=== PATIENT | male | born 1985 | race Caucasian/White ===

== ENCOUNTER 2019-07-07 21:37 | Emergency (ER) | payer BC, OTHER ==
[2019-07-07 21:58] VITALS: BP 136/82; PULSE 98; TEMP 98.9; BMI 34.0
--- NOTE | 2019-07-07 22:42 | PDOC ---
History of Present Illness - General Chief Complaint: Urinary Problem Stated Complaint: UTI Time Seen by Provider: 07/07/19 22:03 - History of Present Illness Initial Comments: 07/07/19 22:38 CHIEF COMPLAINT: urinary problem HISTORY OF PRESENT ILLNESS: 33 yo M with difficulty urinating and urinary urgency x 1 week. Patient reports that he was seen at [facility] 2 months ago for similar symptoms and given Levaquin for a UTI. Denies hx of STDs and states he has only recently had one female partner. Patient states he is not worried about STDs. Patient garcia snot have a PCP. No recent travel or sick contacts. PAST MEDICAL HISTORY: Denies past medical history FAMILY HISTORY: Denies SOCIAL HISTORY: Denies tobacco, alcohol, illicit drug use. SURGICAL HISTORY: Denies ALLERGIES: No known drug allergies REVIEW OF SYSTEMS General/Constitutional: Denies fever or chills. Denies weakness, weight change. HEENT: Denies change in vision. Denies ear pain or discharge. Denies sore throat. Cardiovascular: Denies chest pain or shortness of breath. Respiratory: Denies cough, wheezing, or hemoptysis. Gastrointestinal: Denies nausea, vomiting, diarrhea or constipation. Denies rectal bleeding. Genitourinary: Urinary hesitancy, with mild dysuria, frequency, and urgency. Denies penile discharge. Musculoskeletal: Denies joint or muscle swelling or pain. Denies neck or back pain. Skin and breasts: Denies rash or easy bruising. Neurologic: Denies headache, vertigo, loss of consciousness, or loss of sensation. Psychiatric: Denies depression or anxiety. PHYSICAL EXAM General Appearance: Well-appearing, appropriately dressed. No apparent distress , no intoxication. HEENT: EOMI, PERRLA, normal ENT inspection, normal voice, TMs normal, pharynx normal. No conjunctival pallor. No photophobia, scleral icterus. Neck: Supple. Trachea midline. No tenderness, rigidity, carotid bruit, stridor , lymphadenopathy, or thyromegaly. Respiratory/Chest: Lungs CTAB. No shortness of breath, chest tenderness, respiratory distress, accessory muscle use. No crackles, rales, rhonchi, stridor , wheezing, dullness Cardiovascular: RRR. S1, S2. No JVD, murmur, bradycardia, tachycardia. Vascular Pulses: Dorsalis-Pedis (R): 2+, Dorsalis-Pedis (L): 2+ Gastrointestinal/Abdominal: Normal bowel sounds. Abdomen soft, non-distended. No tenderness or rebound tenderness. No organomegaly, pulsatile mass, guarding , hernia, hepatomegaly, splenomegaly. Lymphatic: No adenopathy, tenderness. Musculoskeletal/Extremities: Normal inspection. FROM of all extremities, normal capillary refill. Pelvis Stable. No CVA tenderness. No tenderness to extremities, pedal edema, swelling, erythema or deformity. Integumentary: Appropriate color, dry, warm. No cyanosis, erythema, jaundice or rash Neurologic: fine wire drawer II-XII intact. Fully oriented, alert. Appropriate mood/affect. Motor strength 5/5. No appreciable EOM palsy, facial droop or sensory deficit. 07/08/19 01:39 Past History - Past Medical History Allergies/Adverse Reactions: Allergies Allergy/AdvReac Type Severity Reaction Status Date / Time No Known Allergies Allergy Verified 07/07/19 21:58 Home Medications: Ambulatory Orders Ibuprofen 600 mg PO TID #60 capsule 07/08/19 Sulfamethoxazole/Trimethoprim [Bactrim Ds Tablet] 1 each PO BID #14 tablet 07/08 COPD: No - Psycho Social/Smoking Cessation Hx Smoking History: Current every day smoker Number of Cigarettes Smoked Daily: 20 Information on smoking cessation initiated: No Hx Alcohol Use: No Drug/Substance Use Hx: No *Physical Exam - Vital Signs Last Vital Signs Temp Pulse Resp BP Pulse Ox 98.9 F 98 H 19 136/82 99 07/07/19 21:56 07/07/19 21:56 07/07/19 21:56 07/07/19 21:56 07/07/19 21:56 Medical Decision Making - Medical Decision Making 07/07/19 22:43 33 yo M with difficulty urinating and urinary urgency x 1 week. -ua, uc, ct/gc 07/08/19 01:29 Bedside ultrasound performed by Cholo Merino with findings of thickened bladder suggestive of bladder infection. Will treat with Bactrim, f/u with urology. 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 NSAIDS, refer to ortho. Advised patient to take medication as prescribed and follow up with urology and ortho. Advised patient of signs and symptoms for return to ED. Patient verbalized understanding and agrees to plan. Discharge - Discharge Information Problems reviewed: Yes Clinical Impression/Diagnosis: Bladder infection, Leg pain, bilateral Condition: Stable Disposition: HOME - Admission No - Additional Discharge Information Prescriptions: Ibuprofen 600 mg PO TID #60 capsule Sulfamethoxazole/Trimethoprim [Bactrim Ds Tablet] 1 each PO BID #14 tablet - Follow up/Referral Referrals: Mansoor Hernandez MD [Staff Physician] - Migel Leija DO [Staff Physician] - Parmjit Mo MD [Staff Physician] - - Patient Discharge Instructions Patient Printed Discharge Instructions: Bladder Infections Happen in Men Too Additional Instructions: Please take medications as prescribed. Complete the entire course of antibiotics, even if your symptoms improve. Follow up with urology within the next 1-2 weeks for further evaluation of your recurrent bladder infections. You may also follow up with orthopedics for further evaluation of your leg pain. If you develop any pain to your back, fever, chills, nausea, vomiting, or diarrhea, or any new or worsening symptoms, please return to the ER . - Post Discharge Activity Work/Back to School Note: Back to Work
[2019-07-08 00:06] LABS: PH,URINE 5.5 (5.0-8.0); URINE APPEARANCE CLEAR; URINE BILIRUBIN NEGATIVE (NEGATIVE); URINE COLOR YELLOW; URINE GLUCOSE (UA) NEGATIVE (NEGATIVE); URINE KETONE NEGATIVE (NEGATIVE); URINE LEUK ESTERASE NEGATIVE (NEGATIVE); URINE NITRITE NEGATIVE (NEGATIVE); URINE PROTEIN NEGATIVE (NEGATIVE); URINE UROBILINOGEN 0.2 mg/dL (0.2-1.0)
--- NOTE | 2019-07-08 01:42 | PDOC ---
*Physical Exam - Vital Signs Last Vital Signs Temp Pulse Resp BP Pulse Ox 98.9 F 98 H 19 136/82 99 07/07/19 21:56 07/07/19 21:56 07/07/19 21:56 07/07/19 21:56 07/07/19 21:56 - Physical Exam 07/08/19 01:39 awake alert lungs clear bilat heart rrr no mrg abd soft nt nd no cva tenderness. skin warm and dry. noted scratch rodriguez on abd. skin otherwise warm and dry. ED Treatment Course - ADDITIONAL ORDERS Additional order review: Laboratory Results 07/07/19 23:42 Urine Color Yellow Urine Appearance Clear Urine pH 5.5 Ur Specific [place] 1.024 Urine Protein Negative Urine Glucose (UA) Negative Urine Ketones Negative Urine Blood Negative Urine Nitrite Negative Urine Bilirubin Negative Urine Urobilinogen 0.2 Ur Leukocyte Esterase Negative Medical Decision Making - Medical Decision Making 07/08/19 01:40 33 yo male h/o recent uti, here with urinary hesitancy, dysuria. no f/c no flank pain. no testicular pain. states was treated with keflex for uti recently. no mod facotrs. was checked for std recently and negativ.e does not have a pcp. pt with normal physical exam. focused ed renal us performed no hydronephrosis. daljit rnoted to hve thickened appearance on ulrsaound. recommend urology fu. will treat with clinical sxs of uti despite ua negative. dc home. given uro flllowup. pt with c/o leg pain. states msk strain. will given ortho fu also. and [facility] fu. pt seen and examined in conjunction with Melanie Correia, agree with assement and plan. Discharge - Discharge Information Problems reviewed: Yes Clinical Impression/Diagnosis: Bladder infection, Leg pain, bilateral Condition: Stable Disposition: HOME - Admission No - Additional Discharge Information Prescriptions: Ibuprofen 600 mg PO TID #60 capsule Sulfamethoxazole/Trimethoprim [Bactrim Ds Tablet] 1 each PO BID #14 tablet - Follow up/Referral Referrals: Parmjit Mo MD [Staff Physician] - Mansoor Hernandez MD [Staff Physician] - Migel Leija DO [Staff Physician] - - Patient Discharge Instructions Patient Printed Discharge Instructions: Bladder Infections Happen in Men Too Additional Instructions: Please take medications as prescribed. Complete the entire course of antibiotics, even if your symptoms improve. Follow up with urology within the next 1-2 weeks for further evaluation of your recurrent bladder infections. You may also follow up with orthopedics for further evaluation of your leg pain. If you develop any pain to your back, fever, chills, nausea, vomiting, or diarrhea, or any new or worsening symptoms, please return to the ER . - Post Discharge Activity
== END 2019-07-08 01:51 | disposition home or self-care (01) ==
LOC: JER 21:37
PROC: BT40ZZZ Ultrasonography of Bladder (ICD-10-PCS; principal; 2019-07-07)
DX: N30.80 Other cystitis without hematuria (principal); M79.605 Pain in left leg; M79.604 Pain in right leg; B96.89 Other specified bacterial agents as the cause of diseases classified elsewhere
CPT/HCPCS: 36415; 76775; 81003; 87086; 87186; 87491; 87591; 99282-25

== ENCOUNTER 2021-07-12 19:24 | Inpatient (IN) | payer OTHER ==
[2021-07-12] MEDS ORDERED: KETOROLAC TROMETHAMINE 15 MG/ML VIAL IVPUSH ONE (20:10)
[2021-07-12] MEDS ORDERED: SODIUM CHLORIDE 0.9% 500 ML INFUS.BAG IV ONE (20:10)
[2021-07-12] MEDS ORDERED: KETOROLAC TROMETHAMINE 30 MG/1 ML VIAL ONE (20:26)
[2021-07-12] MEDS ORDERED: SODIUM CHLORIDE 3,674 ML IV ONE (20:31)
[2021-07-12 20:33] LABS: HEMATOCRIT 41.2 % (35.4-49); HEMOGLOBIN 13.9 GM/dL (11.7-16.9); MCH 31.2 pg (25.7-33.7); MCHC 33.7 g/dl (32.0-35.9); MEAN CELL VOLUME 92.5 fl (80-96); PLATELET COUNT 222 10^3/uL (134-434); RBC 4.46 M/mm3 (4.00-5.60); RDW 13.4 % (11.9-15.9)
[2021-07-12 20:42] LABS: WHITE BLOOD COUNT 30.4 K/mm3 (4.0-10.0)
[2021-07-12 20:56] LABS: ALBUMIN 3.4 g/dl (3.4-5.0); BLOOD UREA NITROGEN 16.2 mg/dL (7-18); CALCIUM 8.3 mg/dL (8.5-10.1)
[2021-07-12] MEDS ORDERED: CEFTRIAXONE 1 GM/50 ML BAG ONE (20:56)
[2021-07-12 20:59] LABS: CREATININE 1.7 mg/dL (0.55-1.3)
[2021-07-12 21:01] LABS: BILIRUBIN,TOTAL 1.4 mg/dL (0.2-1); TOT PROT 6.5 g/dl (6.4-8.2)
[2021-07-12 21:23] LABS: INR 1.22 (0.83-1.09); PROTHROMBIN TIME (PATIENT) 14.3 SEC (9.7-13.0)
[2021-07-12 21:26] LABS: ACTIVATED PTT 30.6 SECONDS (25.2-36.5)
[2021-07-12 21:38] LABS: EPI CELLS 18 /uL (0-25.1); HYALINE CASTS 58 /uL (0-3.1); URINE APPEARANCE CLOUDY; URINE BACTERIA 3095 /uL (0-1359); URINE BILIRUBIN 2+ (NEGATIVE); URINE COLOR ORANGE; URINE GLUCOSE (UA) NEGATIVE (NEGATIVE); URINE KETONE TRACE (NEGATIVE); URINE LEUK ESTERASE 2+ (NEGATIVE); URINE NITRITE POSITIVE (NEGATIVE); URINE PROTEIN 2+ (NEGATIVE); URINE RBC 12 /uL (0-23.9); URINE WBC 293 /uL (0-25.8)
[2021-07-12 21:44] LABS: LACTIC ACID 4.6 mmol/L (0.4-2.0)
[2021-07-12 22:00] LABS: ANISOCYTOSIS 0; MACROCYTOSIS 0; PLATELET ESTIMATE NORMAL
[2021-07-13 02:18] LABS: LACTIC ACID 3.4 mmol/L (0.4-2.0)
[2021-07-13] MEDS: SODIUM CHLORIDE 1,000 ML IV SCH (02:33)
[2021-07-13] MEDS ORDERED: SODIUM CHLORIDE 0.9% 500 ML INFUS.BAG IV ONE (03:03)
[2021-07-13] MEDS ORDERED: HEPARIN NA (PORCINE) 5,000 UNITS/ML 1ML VIAL ONE (06:45)
[2021-07-13] MEDS: HEPARIN NA (PORCINE) 5,000 UNITS/ML 1ML VIAL SQ SCH ×3 (06:50→21:15)
[2021-07-13 07:57] LABS: CALCIUM 7.6 mg/dL (8.5-10.1)
[2021-07-13 07:58] LABS: BLOOD UREA NITROGEN 14.4 mg/dL (7-18); MAGNESIUM 1.8 mg/dL (1.8-2.4)
[2021-07-13 08:03] LABS: BILIRUBIN,TOTAL 1.2 mg/dL (0.2-1); TOT PROT 6.1 g/dl (6.4-8.2)
[2021-07-13 08:07] LABS: HEMATOCRIT 37.5 % (35.4-49); HEMOGLOBIN 12.5 GM/dL (11.7-16.9); MCH 31.4 pg (25.7-33.7); MCHC 33.2 g/dl (32.0-35.9); MEAN CELL VOLUME 94.5 fl (80-96); MEAN PLT VOLUME 7.7 fl (7.5-11.1); PLATELET COUNT 197 10^3/uL (134-434); RBC 3.97 M/mm3 (4.00-5.60); RDW 13.4 % (11.9-15.9); WHITE BLOOD COUNT 31.6 K/mm3 (4.0-10.0)
[2021-07-13 09:01] LABS: EPI CELLS 9 /uL (0-25.1); HYALINE CASTS 2 /uL (0-3.1); PH,URINE 5.5 (5.0-8.0); URINE APPEARANCE CLEAR; URINE BACTERIA 13 /uL (0-1359); URINE BILIRUBIN 1+ (NEGATIVE); URINE COLOR DK YELLOW; URINE GLUCOSE (UA) NEGATIVE (NEGATIVE); URINE KETONE 2+ (NEGATIVE); URINE LEUK ESTERASE 1+ (NEGATIVE); URINE NITRITE NEGATIVE (NEGATIVE); URINE PROTEIN 1+ (NEGATIVE); URINE RBC 13 /uL (0-23.9); URINE WBC 161 /uL (0-25.8)
[2021-07-13] MEDS: POLYETHYLENE GLYCOL (HEALTHYLAX) 3350 17 GM PACKET PO SCH (11:42)
[2021-07-13] MEDS ORDERED: cefTRIAXone SODIUM 1 GM VIAL ONE (11:43)
[2021-07-13] MEDS ORDERED: DEXTROSE 5%-WATER - 50 ML IVPB ONE (11:43)
[2021-07-13] MEDS: NICOTINE 21 MG/24 HOURS TOPICAL PATCH TD SCH (11:47)
[2021-07-13] MEDS: CEFTRIAXONE 1 GM in DEXTROSE 5%-WATER - 50 ML IVPB SCH (12:54)
[2021-07-13 13:15] VITALS: BMI 44.4
[2021-07-13] MEDS: ACETAMINOPHEN 325 MG TABLET (FP) PO PRN (20:23)
[2021-07-14] MEDS: SODIUM CHLORIDE 1,000 ML IV SCH ×2 (02:24→12:15)
[2021-07-14] MEDS: HEPARIN NA (PORCINE) 5,000 UNITS/ML 1ML VIAL SQ SCH ×3 (05:25→22:14)
[2021-07-14 08:43] LABS: HEMATOCRIT 40.3 % (35.4-49); HEMOGLOBIN 13.3 GM/dL (11.7-16.9); MCH 31.3 pg (25.7-33.7); MCHC 33.1 g/dl (32.0-35.9); MEAN CELL VOLUME 94.5 fl (80-96); MEAN PLT VOLUME 8.7 fl (7.5-11.1); PLATELET COUNT 204 10^3/uL (134-434); RBC 4.26 M/mm3 (4.00-5.60); RDW 13.2 % (11.9-15.9); WHITE BLOOD COUNT 18.6 K/mm3 (4.0-10.0)
[2021-07-14 09:00] LABS: BLOOD UREA NITROGEN 8.3 mg/dL (7-18); CALCIUM 8.4 mg/dL (8.5-10.1)
[2021-07-14 09:01] LABS: ALBUMIN 3.1 g/dl (3.4-5.0)
[2021-07-14 09:03] LABS: PHOSPHOROUS 2.7 mg/dL (2.5-4.9)
[2021-07-14 09:04] LABS: CREATININE 0.8 mg/dL (0.55-1.3); MAGNESIUM 2.2 mg/dL (1.8-2.4); TOT PROT 6.4 g/dl (6.4-8.2)
[2021-07-14 09:05] LABS: BILIRUBIN,TOTAL 0.7 mg/dL (0.2-1)
[2021-07-14] MEDS ORDERED: DEXTROSE 5%-WATER - 50 ML IVPB ONE (10:13)
[2021-07-14] MEDS ORDERED: PT OWN MED DRAWER 7, Y5N ONE (10:13)
[2021-07-14] MEDS ORDERED: cefTRIAXone SODIUM 1 GM VIAL ONE (10:13)
[2021-07-14] MEDS: POLYETHYLENE GLYCOL (HEALTHYLAX) 3350 17 GM PACKET PO SCH (10:17)
[2021-07-14] MEDS: CEFTRIAXONE 1 GM in DEXTROSE 5%-WATER - 50 ML IVPB SCH (10:17)
[2021-07-14] MEDS: NICOTINE 21 MG/24 HOURS TOPICAL PATCH TD SCH (10:17)
[2021-07-14] MEDS: ACETAMINOPHEN 325 MG TABLET (FP) PO PRN (10:36)
[2021-07-15] MEDS: SODIUM CHLORIDE 1,000 ML IV SCH (01:30)
[2021-07-15] MEDS: HEPARIN NA (PORCINE) 5,000 UNITS/ML 1ML VIAL SQ SCH ×2 (05:46→14:07)
[2021-07-15 09:22] LABS: BASO % 0.7 % (0-2.0); EOS % 4.9 % (0-4.5); HEMATOCRIT 40.4 % (35.4-49); HEMOGLOBIN 13.5 GM/dL (11.7-16.9); LYMPH % 21.8 % (8-40); MCH 31.5 pg (25.7-33.7); MCHC 33.5 g/dl (32.0-35.9); MEAN PLT VOLUME 8.2 fl (7.5-11.1); MONO % 7.3 % (3.8-10.2); NEUT % 65.3 % (42.8-82.8); PLATELET COUNT 242 10^3/uL (134-434); WHITE BLOOD COUNT 10.4 K/mm3 (4.0-10.0)
[2021-07-15] MEDS ORDERED: cefTRIAXone SODIUM 1 GM VIAL ONE (09:52)
[2021-07-15] MEDS ORDERED: DEXTROSE 5%-WATER - 50 ML IVPB ONE (09:52)
[2021-07-15 09:53] LABS: BLOOD UREA NITROGEN 7.9 mg/dL (7-18); CALCIUM 8.5 mg/dL (8.5-10.1)
[2021-07-15] MEDS: CEFTRIAXONE 1 GM in DEXTROSE 5%-WATER - 50 ML IVPB SCH (09:56)
[2021-07-15] MEDS: NICOTINE 21 MG/24 HOURS TOPICAL PATCH TD SCH (09:56)
[2021-07-15 09:57] LABS: CREATININE 0.8 mg/dL (0.55-1.3)
[2021-07-15] MEDS: POLYETHYLENE GLYCOL (HEALTHYLAX) 3350 17 GM PACKET PO SCH (10:25)
[2021-07-15 14:56] VITALS: BP 137/87; PULSE 98; TEMP 98.2
== END 2021-07-15 17:47 | disposition home or self-care (01) | DRG 720 ==
LOC: JER 19:24 → JERBED 21:48 → J8W 07-13 10:20
PROVIDERS: ADMIT Hospitalist
DX: A41.89 Other specified sepsis (principal); R00.0 Tachycardia, unspecified; M79.10 Myalgia, unspecified site; D72.829 Elevated white blood cell count, unspecified; R33.9 Retention of urine, unspecified; E87.2 Acidosis; M54.10 Radiculopathy, site unspecified; N12 Tubulo-interstitial nephritis, not specified as acute or chronic; N39.0 Urinary tract infection, site not specified; M50.20 Other cervical disc displacement, unspecified cervical region; M51.24 Other intervertebral disc displacement, thoracic region; M51.26 Other intervertebral disc displacement, lumbar region; R65.20 Severe sepsis without septic shock; E66.01 Morbid (severe) obesity due to excess calories; Z68.41 Body mass index [BMI] 40.0-44.9, adult; M54.30 Sciatica, unspecified side
CPT/HCPCS: 36415; 74176-TC; 76775-TC; 76856-TC; 80048; 80053; 81003; 83036; 83605; 83735; 84100; 85025; 85027; 85610; 85730; 87040; 87086; 87186; 87491; 87591; 93005; 93010; 99285-25; C9803; U0003; U0005

== ENCOUNTER 2022-04-07 23:10 | Emergency (ER) | payer OTHER ==
[2022-04-07 23:28] VITALS: BP 119/67; PULSE 117; RESP 18; TEMP 99.3; BMI 41.0
[2022-04-08] MEDS ORDERED: LACTATED RINGERS SOLUTION 1000 ML INFUS.BAG IV ONE (00:41)
[2022-04-08 01:31] LABS: EPI CELLS 19 /uL (0-25.1); HYALINE CASTS 2 /uL (0-3.1); PH,URINE 5.5 (5.0-8.0); URINE APPEARANCE CLEAR; URINE BACTERIA 4494 /uL (0-1359); URINE BILIRUBIN NEGATIVE (NEGATIVE); URINE COLOR YELLOW; URINE GLUCOSE (UA) NEGATIVE (NEGATIVE); URINE KETONE TRACE (NEGATIVE); URINE LEUK ESTERASE TRACE (NEGATIVE); URINE NITRITE NEGATIVE (NEGATIVE); URINE PROTEIN NEGATIVE (NEGATIVE); URINE RBC 5 /uL (0-23.9); URINE UROBILINOGEN 0.2 mg/dL (0.2-1.0); URINE WBC 58 /uL (0-25.8)
[2022-04-08 01:46] LABS: BASO % 0.4 % (0-2.0); EOS % 3.8 % (0-4.5); HEMATOCRIT 42.5 % (35.4-49); HEMOGLOBIN 14.3 GM/dL (11.7-16.9); LYMPH % 7.7 % (8-40); MCH 31.4 pg (25.7-33.7); MCHC 33.7 g/dl (32.0-35.9); MONO % 7.1 % (3.8-10.2); PLATELET COUNT 305 10^3/uL (134-434); RBC 4.57 M/mm3 (4.00-5.60); RDW 13.1 % (11.9-15.9); WHITE BLOOD COUNT 9.3 K/mm3 (4.0-10.0)
[2022-04-08] MEDS ORDERED: CEFTRIAXONE 1,500 MG in DEXTROSE 5%-WATER - 50 ML IVPB ONE (01:46)
[2022-04-08 02:07] LABS: CALCIUM 8.7 mg/dL (8.5-10.1); MAGNESIUM 2.1 mg/dL (1.8-2.4)
[2022-04-08 02:08] LABS: BLOOD UREA NITROGEN 14.3 mg/dL (7-18)
[2022-04-08 02:10] LABS: CREATININE 0.9 mg/dL (0.55-1.3)
[2022-04-08 02:12] LABS: BILIRUBIN,TOTAL 0.4 mg/dL (0.2-1); TOT PROT 7.1 g/dl (6.4-8.2)
[2022-04-08] MEDS ORDERED: CEFTRIAXONE 2 GM/100 ML BAG IVPB ONE (02:27)
[2022-04-08] MEDS ORDERED: CEFTRIAXONE 2,000 MG in DEXTROSE 5%-WATER - 50 ML IVPB ONE (02:35)
[2022-04-08 02:54] LABS: SYPHILIS W/ RPR CONF NON-REACTIVE (NONREACTIVE)
[2022-04-08 03:22] LABS: HIV INTERPRETATION NEGATIVE (NEGATIVE)
== END 2022-04-08 04:16 | disposition home or self-care (01) ==
LOC: JER 23:10
DX: U07.1 COVID-19 (principal)
CPT/HCPCS: 36415; 71046-TC-FY; 76870-TC; 80053; 81003; 83690; 83735; 85025; 86780; 87086; 87186; 87389; 93005; 93010; 99285-25; C9803-CS; U0003; U0005

== ENCOUNTER 2022-10-22 12:31 | Emergency (ER) | payer OTHER ==
[2022-10-22 12:49] VITALS: RESP 18; BMI 39.5
[2022-10-22] MEDS ORDERED: SODIUM CHLORIDE 1,000 ML IV STA ×3 (13:33→15:26)
[2022-10-22 14:08] LABS: BASO % 0.3 % (0-2.0); EOS % 1.4 % (0-4.5); HEMATOCRIT 38.9 % (35.4-49); HEMOGLOBIN 13.4 GM/dL (11.7-16.9); LYMPH % 14.9 % (8-40); MCH 31.7 pg (25.7-33.7); MCHC 34.3 g/dl (32.0-35.9); MEAN CELL VOLUME 92.3 fl (80-96); MEAN PLT VOLUME 6.5 fl (7.5-11.1); MONO % 6.9 % (3.8-10.2); NEUT % 76.5 % (42.8-82.8); PLATELET COUNT 361 10^3/uL (134-434); RBC 4.22 M/mm3 (4.00-5.60); RDW 12.9 % (11.9-15.9); WHITE BLOOD COUNT 18.2 K/mm3 (4.0-10.0)
[2022-10-22 14:22] LABS: INR 1.05 (0.83-1.09); PROTHROMBIN TIME (PATIENT) 12.2 SEC (9.7-13.0)
[2022-10-22 14:23] LABS: PH,URINE 5.5 (5.0-8.0); URINE APPEARANCE CLEAR; URINE BILIRUBIN NEGATIVE (NEGATIVE); URINE COLOR YELLOW; URINE GLUCOSE (UA) NEGATIVE (NEGATIVE); URINE KETONE NEGATIVE (NEGATIVE); URINE LEUK ESTERASE NEGATIVE (NEGATIVE); URINE NITRITE NEGATIVE (NEGATIVE); URINE PROTEIN NEGATIVE (NEGATIVE); URINE UROBILINOGEN 0.2 mg/dL (0.2-1.0)
[2022-10-22 14:25] LABS: ACTIVATED PTT 35.5 SECONDS (25.2-36.5)
[2022-10-22 14:32] LABS: BLOOD UREA NITROGEN 7.4 mg/dL (7-18)
[2022-10-22 14:35] LABS: CREATININE 0.8 mg/dL (0.55-1.3)
[2022-10-22 14:37] LABS: BILIRUBIN,TOTAL 1.7 mg/dL (0.2-1); TOT PROT 7.3 g/dl (6.4-8.2)
[2022-10-22] MEDS ORDERED: KETOROLAC TROMETHAMINE 30 MG/1 ML VIAL IM ONE (14:41)
[2022-10-22] MEDS ORDERED: KETOROLAC TROMETHAMINE 30 MG/1 ML VIAL ONE (15:01)
[2022-10-22 17:14] LABS: BASO % 0.3 % (0-2.0); EOS % 2.6 % (0-4.5); HEMATOCRIT 38.6 % (35.4-49); HEMOGLOBIN 13.1 GM/dL (11.7-16.9); LYMPH % 17.9 % (8-40); MCH 31.5 pg (25.7-33.7); MEAN CELL VOLUME 92.6 fl (80-96); MEAN PLT VOLUME 6.8 fl (7.5-11.1); MONO % 6.9 % (3.8-10.2); NEUT % 72.3 % (42.8-82.8); PLATELET COUNT 363 10^3/uL (134-434); RBC 4.17 M/mm3 (4.00-5.60); WHITE BLOOD COUNT 15.3 K/mm3 (4.0-10.0)
[2022-10-22 17:17] VITALS: BP 140/86; PULSE 90; TEMP 98.8
[2022-10-22 18:43] LABS: ERYTHROCYTE SEDIMENTATION RATE 14 mm/hr (0-10)
== END 2022-10-22 18:11 | disposition home or self-care (01) ==
LOC: JER 12:31
PROC: 3E023GC Introduction of Other Therapeutic Substance into Muscle, Percutaneous Approach (ICD-10-PCS; principal; 2022-10-22)
PROC: 3E0337Z Introduction of Electrolytic and Water Balance Substance into Peripheral Vein, Percutaneous Approach (ICD-10-PCS; 2022-10-22)
PROC: 3E0337Z Introduction of Electrolytic and Water Balance Substance into Peripheral Vein, Percutaneous Approach (ICD-10-PCS; 2022-10-22)
PROC: 3E0337Z Introduction of Electrolytic and Water Balance Substance into Peripheral Vein, Percutaneous Approach (ICD-10-PCS; 2022-10-22)
DX: M54.50 Low back pain, unspecified (principal); G89.4 Chronic pain syndrome; V89.9XXD Person injured in unspecified vehicle accident, subsequent encounter; Y92.9 Unspecified place or not applicable
CPT/HCPCS: 36415; 71046-TC-FY; 74176-TC; 76705-TC; 80053; 81003; 85025; 85610; 85651; 85730; 86140; 87086; 93005; 93010; 99285-25

== ENCOUNTER 2023-03-16 18:38 | Emergency (ER) | payer OTHER ==
[2023-03-16 18:50] VITALS: BP 142/75; PULSE 79; RESP 18; TEMP 98.7; BMI 36.5
[2023-03-16] MEDS ORDERED: KETOROLAC TROMETHAMINE 60 MG/2 ML VIAL IM ONE (19:09)
[2023-03-16] MEDS ORDERED: CYCLOBENZAPRINE HCL 10 MG TABLET (FP) PO ONE (19:10)
[2023-03-16] MEDS ORDERED: KETOROLAC TROMETHAMINE 60 MG/2 ML VIAL ONE (19:15)
[2023-03-16] MEDS ORDERED: CYCLOBENZAPRINE HCL 5 MG TABLET ONE (19:15)
== END 2023-03-16 19:33 | disposition home or self-care (01) ==
LOC: FER 18:38 → SUPCPDRO 18:38 → FER 19:33
PROC: 3E0233Z Introduction of Anti-inflammatory into Muscle, Percutaneous Approach (ICD-10-PCS; principal; 2023-03-16)
DX: M54.50 Low back pain, unspecified (principal); X50.0XXA Overexertion from strenuous movement or load, initial encounter; Y99.0 Civilian activity done for income or pay
CPT/HCPCS: 99284-25

== ENCOUNTER 2023-05-11 09:08 | Emergency (ER) | payer OTHER ==
[2023-05-11 09:25] VITALS: RESP 16; TEMP 99.8; BMI 38.0
[2023-05-11] MEDS ORDERED: KETOROLAC TROMETHAMINE 60 MG/2 ML VIAL IM ONE (09:31)
[2023-05-11] MEDS ORDERED: KETOROLAC TROMETHAMINE 30 MG/1 ML VIAL ONE (09:34)
[2023-05-11 09:46] LABS: HEMATOCRIT 47.6 % (35.4-49); HEMOGLOBIN 15.6 G/dL (11.7-16.9); MCH 32.1 pg (25.7-33.7); MCHC 32.8 g/dl (32.0-35.9); MEAN CELL VOLUME 98.1 fl (80-96); MEAN PLT VOLUME 6.8 fl (7.5-11.1); PLATELET COUNT 288.7 10^3/uL (134-434); RBC 4.85 10^6/uL (4.00-5.60); RDW 12.4 % (11.9-15.9); WHITE BLOOD COUNT 18.5 10^3/uL (4.0-10.8)
[2023-05-11 10:09] LABS: ALBUMIN 4.1 g/dl (3.4-5.0); BLOOD UREA NITROGEN 8.1 mg/dl (7-18); CALCIUM 8.8 mg/dl (8.5-10.1); CREATININE 0.9 mg/dl (0.6-1.3); POTASSIUM 3.7 mmol/L (3.5-5.1); SGOT/AST 15.611 U/L (15-37); SGPT/ALT 23.274 U/L (7-52); TOT PROT 6.7 g/dl (6.4-8.2)
[2023-05-11 10:22] LABS: EPITHELIAL CELLS 0-5 /hpf
[2023-05-11 10:34] LABS: PLATELET ESTIMATE ADEQUATE
[2023-05-11] MEDS ORDERED: ACETAMINOPHEN 325 MG TABLET (FP) PO ONE (10:38)
[2023-05-11] MEDS ORDERED: ACETAMINOPHEN 325 MG TABLET (FP) ONE (10:40)
[2023-05-11 11:31] VITALS: BP 119/72; PULSE 96
== END 2023-05-11 12:16 | disposition home or self-care (01) ==
LOC: FER 09:08
PROC: 3E0233Z Introduction of Anti-inflammatory into Muscle, Percutaneous Approach (ICD-10-PCS; principal; 2023-05-11)
DX: N50.811 Right testicular pain (principal); M54.50 Low back pain, unspecified; N50.89 Other specified disorders of the male genital organs; R68.83 Chills (without fever); N45.1 Epididymitis
CPT/HCPCS: 36415; 76870-TC; 80053; 81003; 81015; 85027; 87086; 87186; 99284-25

== ENCOUNTER 2023-07-15 09:38 | Emergency (ER) | payer OTHER ==
[2023-07-15 10:01] VITALS: BP 132/81; PULSE 81; RESP 18; TEMP 98.7; BMI 36.5
[2023-07-15] MEDS ORDERED: cefTRIAXone SODIUM 1 GM VIAL ONE (11:27)
[2023-07-15 11:42] LABS: EPITHELIAL CELLS 0-5 /hpf
== END 2023-07-15 12:30 | disposition home or self-care (01) ==
LOC: FER 09:38
DX: N45.1 Epididymitis (principal)
CPT/HCPCS: 36415; 76870-TC; 81003; 81015; 87086; 87186; 87491; 87591; 99284-25

== ENCOUNTER 2023-10-06 21:21 | Emergency (ER) | payer OTHER ==
[2023-10-06 21:43] VITALS: BP 154/103; PULSE 108; RESP 16; TEMP 97.9; BMI 36.5
[2023-10-06 22:20] LABS: HEMATOCRIT 47.9 % (35.4-49); HEMOGLOBIN 15.6 G/dL (11.7-16.9); MCH 31.7 pg (25.7-33.7); MCHC 32.7 g/dl (32.0-35.9); MEAN CELL VOLUME 97.2 fl (80-96); MEAN PLT VOLUME 6.7 fl (7.5-11.1); PLATELET COUNT 296.6 10^3/uL (134-434); RBC 4.93 10^6/uL (4.00-5.60); RDW 13.4 % (11.9-15.9); WHITE BLOOD COUNT 15.6 10^3/uL (4.0-10.8)
[2023-10-06] MEDS ORDERED: cefTRIAXone SODIUM 1 GM VIAL ONE (22:37)
[2023-10-06] MEDS: CEFTRIAXONE 1 GM in DEXTROSE 5%-WATER - 50 ML IVPB ONE (22:41)
[2023-10-06 22:46] LABS: ALBUMIN 4.2 g/dl (3.4-5.0); BILIRUBIN,TOTAL 0.4 mg/dl (0.2-1); CALCIUM 8.9 mg/dl (8.5-10.1); POTASSIUM 3.7 mmol/L (3.5-5.1); TOT PROT 6.5 g/dl (6.4-8.2)
[2023-10-06 22:58] LABS: PLATELET ESTIMATE ADEQUATE
== END 2023-10-06 23:36 | disposition home or self-care (01) ==
LOC: FER 21:21
DX: R10.31 Right lower quadrant pain (principal); R10.32 Left lower quadrant pain; R30.0 Dysuria; N30.90 Cystitis, unspecified without hematuria
CPT/HCPCS: 36415; 74176-TC; 80053; 81003; 81015; 85025; 87077; 87086; 93005; 99285-25

== ENCOUNTER 2023-10-23 11:42 | Emergency (ER) | payer OTHER ==
[2023-10-23 12:15] VITALS: BMI 36.5
[2023-10-23 12:26] LABS: HEMATOCRIT 50.9 % (35.4-49); HEMOGLOBIN 16.8 G/dL (11.7-16.9); MCH 31.5 pg (25.7-33.7); MCHC 33.1 g/dl (32.0-35.9); MEAN CELL VOLUME 95.1 fl (80-96); MEAN PLT VOLUME 7.3 fl (7.5-11.1); PLATELET COUNT 308.1 10^3/uL (134-434); RBC 5.35 10^6/uL (4.00-5.60); RDW 13.4 % (11.9-15.9); WHITE BLOOD COUNT 11.6 10^3/uL (4.0-10.8)
[2023-10-23 12:38] LABS: ALBUMIN 4.8 g/dl (3.4-5.0); BILIRUBIN,TOTAL 0.9 mg/dl (0.2-1); CALCIUM 9.6 mg/dl (8.5-10.1); CREATININE 0.8 mg/dl (0.6-1.3); MAGNESIUM 2.1 mg/dL (1.8-2.4); POTASSIUM 3.5 mmol/L (3.5-5.1); TOT PROT 7.7 g/dl (6.4-8.2)
[2023-10-23] MEDS ORDERED: ACETAMINOPHEN INJECTION 100 ML IVPB ONE (12:44)
[2023-10-23] MEDS: ACETAMINOPHEN 1000 MG/100 ML BAG IVPB ONE (12:48)
[2023-10-23 13:42] LABS: PLATELET ESTIMATE ADEQUATE
[2023-10-23] MEDS: KETOROLAC TROMETHAMINE 15 MG/ML VIAL IVPUSH ONE (14:10)
[2023-10-23 15:23] VITALS: BP 140/82; PULSE 60; RESP 16; TEMP 98.3
== END 2023-10-23 15:23 | disposition home or self-care (01) ==
LOC: FER 11:42
PROC: 3E033NZ Introduction of Analgesics, Hypnotics, Sedatives into Peripheral Vein, Percutaneous Approach (ICD-10-PCS; principal; 2023-10-23)
PROC: 3E033GC Introduction of Other Therapeutic Substance into Peripheral Vein, Percutaneous Approach (ICD-10-PCS; 2023-10-23)
DX: R07.89 Other chest pain (principal); R20.0 Anesthesia of skin
CPT/HCPCS: 36415; 71046-TC-FY; 80053; 81003; 81015; 83735; 84484; 85027; 85379; 87086; 87186; 93005; 99285-25; J0131

== ENCOUNTER 2024-05-10 16:23 | Emergency (ER) | payer OTHER ==
[2024-05-10 16:46] VITALS: BP 128/83; PULSE 103; RESP 18; TEMP 98.1; BMI 34.9
[2024-05-10] MEDS ORDERED: METHOCARBAMOL 500 MG TABLET ONE ×2 (19:06→19:11)
[2024-05-10] MEDS ORDERED: KETOROLAC TROMETHAMINE 30 MG/1 ML VIAL ONE (19:06)
[2024-05-10] MEDS ORDERED: LIDOCAINE 4% PATCH TP ONE (19:06)
[2024-05-10] MEDS: KETOROLAC TROMETHAMINE 30 MG/1 ML VIAL IM ONE (19:16)
[2024-05-10] MEDS: METHOCARBAMOL 500 MG TABLET PO ONE (19:16)
[2024-05-10] MEDS: LIDOCAINE 4% PATCH TP ONE (19:16)
[2024-05-10] MEDS ORDERED: DEXAMETHASONE SOD PHOSPHATE 10 MG/1 ML VIAL ONE (20:10)
[2024-05-10] MEDS: DEXAMETHASONE SOD PHOSPHATE 10 MG/1 ML VIAL IM ONE (20:15)
== END 2024-05-10 21:18 | disposition home or self-care (01) ==
LOC: JERFT 16:23
PROC: 3E023GC Introduction of Other Therapeutic Substance into Muscle, Percutaneous Approach (ICD-10-PCS; principal; 2024-05-10)
PROC: 3E0133Z Introduction of Anti-inflammatory into Subcutaneous Tissue, Percutaneous Approach (ICD-10-PCS; 2024-05-10)
DX: M54.50 Low back pain, unspecified (principal); G89.29 Other chronic pain; X50.0XXA Overexertion from strenuous movement or load, initial encounter
CPT/HCPCS: 96375; 99284-25; J1100